=== PATIENT | male | born 1990 ===

== ENCOUNTER 2019-06-27 11:22 | Outpatient (REF) | payer OTHER, SELFPAY ==
[2019-06-27 22:01] LABS: Anion Gap 7.7 mmol/L (3-11); BUN 19 mg/dL (7-18); CO2 30.3 mmol/L (21.0-32.0); CREATININE 0.82 mg/dL (0.70-1.30); Calculated LDL 99 mg/dL (<100); Chloride 103 mmol/L (98-107); Cholesterol 191 mg/dL (<200); Glucose 82 mg/dL (74-106); HDL Cholesterol 45 mg/dL (40-60); Potassium 4.4 mmol/L (3.5-5.1); Sodium 141 mmol/L (136-145); Triglyceride 239 mg/dL (<150)
== END 2019-06-27 11:42 ==
LOC: NCHCN 11:22
PROVIDERS: Visit Provider Specialist/Technologist Athletic Trainer
DX: I10 Essential (primary) hypertension (principal)
CPT/HCPCS: 80048; 80061